=== PATIENT | male | born 1950 | race Caucasian/White ===

== ENCOUNTER 2018-08-03 18:12 | Emergency (ER) | payer BC, OTHER ==
--- NOTE | 2018-08-03 18:22 | EDM.PDOC ---
ED HPI GENERAL MEDICAL PROBLEM - General Chief Complaint: Trauma Stated Complaint: BUCKED OFF HORSE Time Seen by Provider: 08/03/18 18:12 Source of Information: Reports: Patient, EMS History Limitations: Reports: No Limitations - History of Present Illness INITIAL COMMENTS - FREE TEXT/NARRATIVE: 60-year-old male bucked off a horse landing on his left side. No loss of consciousness. He landed on the grass, striking the left side of his face and head, sustaining a small injury to the distal tongue and some left-sided chest discomfort. Some pain with breathing but no shortness of breath, no amnesia of the event and denies any headache, neck pain, abdominal pain, back or hip pain and no extremity injury. Trauma code was not called by EMS, he was initially called by ourselves that when the patient arrived he was very stable with a GCS of 15 and normal vital so was canceled. His only complaint was the localized discomfort of the left chest and a small amount of discomfort on the anterior left shoulder. Onset: Sudden Duration: Hour(s): (Within the last hour) Location: Reports: Head, Face, Chest Associated Symptoms: Reports: Chest Pain. Denies: Confusion, Cough, Loss of Appetite, Nausea/Vomiting, Shortness of Breath (Some pleuritic pain with breathing but no shortness of breath), Weakness Left Chest Pain Score (Numeric/FACES): 5 Left Shoulder Pain Score (Numeric/FACES): 2 - Related Data Allergies Allergy/AdvReac Type Severity Reaction Status Date / Time No Known Allergies Allergy Verified 08/03/18 18:17 Home Meds: Home Meds . [Unable to Verify Home Med List] 08/03/18 [History] Review of Systems - Review of Systems Review Of Systems: See Below Constitutional: Denies: Fever Eyes: Reports: No Symptoms Mouth/Throat: Reports: Other (Slight pain to the distal tongue, no dental injury ) Respiratory: Reports: Pleuritic Chest Pain. Denies: Shortness of Breath, Cough Cardiovascular: Reports: Chest Pain (Left lateral chest) Genitourinary: Reports: No Symptoms Musculoskeletal: Reports: Other (Some soreness of the anterior left shoulder) Skin: Reports: Bruising (Superficial bruising on the left lateral face and cheek ) Neurological: Denies: Confusion, Dizziness, Headache Psychiatric: Reports: No Symptoms ED EXAM, GENERAL - Physical Exam Exam: See Below Exam Limited By: No Limitations General Appearance: Alert, No Apparent Distress Eye Exam: Bilateral Eye: EOMI, PERRL Throat/Mouth: Other (Wrist contusion on the tip of the tongue, no active bleeding, no dental injury found) Head: Other (Petechial bruising on the left forehead and cheek) Neck: Supple, Non-Tender Respiratory/Chest: No Respiratory Distress, Lungs Clear, Other (Tenderness to palpation across the left chest wall and anterior upper left chest, no crepitus or deformity.) Cardiovascular: Regular Rate, Rhythm GI/Abdominal: Soft, Non-Tender Extremities: Other (Full passive range of motion of the lower extremities without pain) Neurological: Alert, Oriented, No Motor/Sensory Deficits Course - Vital Signs Last Recorded V/S: Last Vital Signs Temp 96.5 F 08/03/18 18:19 Pulse 71 08/03/18 19:25 Resp 16 08/03/18 18:19 BP 144/66 H 08/03/18 19:25 Pulse Ox 90 L 08/03/18 18:19 - Re-Assessments/Exams Free Text/Narrative Re-Assessment/Exam: 08/03/18 18:22 Initial GCS was 15, vitals are stable and trauma code was canceled. Patient will be sent back for a two-view chest x-ray. 08/03/18 19:14 Two-view chest x-ray was normal. Patient was starting to develop some generalized aches and pains but no focal discomfort and remained stable. He was ambulated around the emergency room and tolerated this well. Departure - Departure Time of Disposition: 19:38 Disposition: Home, Self-Care 01 Condition: Good Clinical Impression: Contusion, chest wall Qualifiers: Encounter type: initial encounter Laterality: left Qualified Code(s): S20.212A - Contusion of left front wall of thorax, initial encounter Facial abrasion Qualifiers: Encounter type: initial encounter Qualified Code(s): S00.81XA - Abrasion of other part of head, initial encounter Low back strain Qualifiers: Encounter type: initial encounter Qualified Code(s): S39.012A - Strain of muscle, fascia and tendon of lower back, initial encounter - Discharge Information Instructions: Contusion, [id number] Referrals: PCP,None [Primary Care Provider] - Forms: ED Department Discharge Care Plan Goals: Increase activity as tolerated, ice to sore areas may be helpful for the next 2 days. A regular dose of ibuprofen or naproxen will also help. Return to the emergency room at any time if you develop symptoms such as increase difficulty breathing, uncontrolled pain, persistent headache or other concerns.
--- NOTE | 2018-08-03 18:48 | CRLCR ---
INDICATION: Dyspnea, left sided rib pain TECHNIQUE: Chest radiograph 2 views COMPARISON: None FINDINGS: Moderate degradation of image quality noted due to body habitus. Mediastinum: The mediastinum is normal in appearance. Mild cardiomegaly is present. Lung: Small lung volumes are present with minimal subsegmental bibasilar atelectasis seen. No sign of pleural effusion seen. No pneumothorax is identified. Musculoskeletal: Numerous surgical clips are present within the right thoracic inlet. IMPRESSION: 1. Mild cardiomegaly is present. Dictated by Tao Herzog MD @ 08/03/2018 6:47:26 PM Dictated by: Tao Herzog MD @ 08/03/2018 18:47:44 (Electronically Signed)
== END 2018-08-03 19:38 | disposition home or self-care (01) ==
LOC: JP.ED 18:12
DX: S39.012A Strain of muscle, fascia and tendon of lower back, initial encounter (principal); S20.212A Contusion of left front wall of thorax, initial encounter; S00.81XA Abrasion of other part of head, initial encounter; V80.010A Animal-rider injured by fall from or being thrown from horse in noncollision accident, initial encounter
CPT/HCPCS: 71046; 99285-25